=== PATIENT | male | born 1955 ===

== ENCOUNTER 2018-09-16 12:56 | Emergency (ER) | payer OTHER ==
--- NOTE | 2018-09-16 15:01 | C.PDOC ---
History Of Present Illness 63 y/o male,w/PMhx of defibrillator, presents to the ER complaining of dry cough and shortness of breath which has been present for the past 2 weeks. Patient sates that he was recently diagnosed and admitted for "fluid in lungs" at [facility]. Patient was discharged with prescription for Lasix 20 mg and instructed to follow up with PCP. He notes that he has dyspnea at rest,orthopnea, and leg swelling. Denies having fever,chills, CP, syncope, dizziness, and abdominal pain. Time Seen by Provider: 09/16/18 13:44 Chief Complaint (Nursing): Shortness Of Breath History Per: Patient History/Exam Limitations: no limitations Onset/Duration Of Symptoms: Days Current Symptoms Are (Timing): Still Present Severity: Moderate Past Medical History Reviewed: Historical Data, Nursing Documentation, Vital Signs Vital Signs: Last Vital Signs Temp 99 F 09/16/18 13:23 Pulse 112 H 09/16/18 13:23 Resp 20 09/16/18 14:22 BP 139/86 09/16/18 13:23 Pulse Ox 96 09/16/18 14:22 - Medical History PMH: Cardia Arrhythmia, CHF, HTN, Hypercholesterolemia Other Surgeries: Hx of surgeries Family History: States: No Known Family Hx - Social History Hx Alcohol Use: No Hx Substance Use: No - Immunization History Hx Tetanus Toxoid Vaccination: No Hx Influenza Vaccination: Yes Hx Pneumococcal Vaccination: No Review Of Systems Except As Marked, All Systems Reviewed And Found Negative. Constitutional: Negative for: Fever, Chills Cardiovascular: Negative for: Chest Pain Respiratory: Positive for: Cough, Shortness of Breath Gastrointestinal: Negative for: Nausea, Vomiting, Abdominal Pain Physical Exam - Physical Exam Appears: No Acute Distress, Other (speaking in full sentences) Skin: Normal Color, Warm, Dry Head: Atraumatic, Normacephalic Eye(s): bilateral: Normal Inspection Nose: Normal Oral Mucosa: Moist Neck: Supple Chest: Symmetrical Cardiovascular: Rhythm Regular Respiratory: Decreased Breath Sounds, No Rales, No Rhonchi, Wheezing (faint expiratory wheezing) Gastrointestinal/Abdominal: Normal Exam, Soft, No Tenderness, No Guarding, No Rebound Extremity: Normal ROM, Other (mild bilateral pitting edema) Neurological/Psych: Oriented x3, Normal Speech ED Course And Treatment - Laboratory Results Result Diagrams: 09/16/18 14:58 09/16/18 14:58 ECG: Interpreted By Me, Viewed By Me ECG Rhythm: Sinus Tachycardia Interpretation Of ECG: Sinus Tachycardia with occasional PVC's, left axis deviation, RBBB, normal QT, and no ST elevations Rate From EC O2 Sat by Pulse Oximetry: 96 (RA) Pulse Ox Interpretation: Normal Medical Decision Making Medical Decision Making: Plan: --Labs --ECG --CXR Updates: 16:37 Case discussed with and for admission. However, patient wants to sign out AMA. Patient reports that he has appointment with his PMD in 2 days. AMA The patient declines admission, and wishes to leave the Emergency Department. This action is against my medical advice to the patient and the decision was made with informed refusal. The patient was told that admission is necessary and a full explanation of the rationale was given. The risks of leaving were explained to the patient and include, but are not limited to, worsening of known or currently unknown conditions, permanent disability and from undiagnosed or untreated conditions The patient has the capacity to make this informed decision and understands the clinical situation and my explanation of the risks of leaving. The patient voluntarily accepts these risks, and a signed AMA form documenting our conversation was obtained. The patient was given the opportunity to ask questions and reconsider. The patient was encouraged to return to the Emergency Department at any time for further care. Disposition Counseled Patient/Family Regarding: Studies Performed, Diagnosis, Need For Followup - Disposition Referrals: Viry Lynch MD [Medical Doctor] - Disposition: AGAINST MEDICAL ADVICE Disposition Time: 16:47 Condition: STABLE Instructions: Heart Failure, Adult (DC), Leaving Against Medical Advice Forms: [facility] (French), General Discharge Instructions - Clinical Impression Clinical Impression: Acute exacerbation of CHF (congestive heart failure) - Scribe Statement The provider has reviewed the documentation as recorded by the Christopheribe Lizzie Uriarte Provider Attestation: All medical record entries made by the Scribe were at my direction and personally dictated by me. I have reviewed the chart and agree that the record accurately reflects my personal performance of the history, physical exam, medical decision making, and the department course for this patient. I have also personally directed, reviewed, and agree with the discharge instructions and disposition.
[2018-09-16 15:06] LABS: BASO % 0.3 % (0.0-2.0); EOS # 0.2 K/uL (0.0-0.7); EOS % 2.1 % (0.0-4.0); HEMOGLOBIN 13.8 g/dL (12.0-18.0); LYMPH # 2.2 K/uL (1.0-4.3); LYMPH % 22.6 % (20.0-40.0); MEAN CELL VOLUME 90.5 fL (80.0-94.0); MEAN CORPUSCULAR HEMOGLOBIN 29.9 pg (27.0-31.0); MEAN CORPUSCULAR HGB CONC 33.1 g/dL (33.0-37.0); MEAN PLATELET VOLUME 9.4 fL (7.2-11.7); MONO % 10.4 % (0.0-10.0); NEUT # 6.1 K/uL (1.8-7.0); NEUT % 64.6 % (50.0-75.0); RBC 4.62 Mil/uL (4.40-5.90); RED CELL DISTRIBUTION WIDTH 14.4 % (11.5-14.5); WHITE BLOOD COUNT 9.5 K/uL (4.8-10.8)
[2018-09-16 15:13] LABS: INR 1.1; PROTHROMBIN TIME 12.1 SECONDS (9.7-12.2)
[2018-09-16 15:19] LABS: ALB/GLOB RATIO 1.2 (1.0-2.1); ALT/SGPT 22 U/L (21-72); AST/SGOT 29 U/L (17-59); BLOOD UREA NITROGEN 17 mg/dL (9-20); CALCIUM 9.3 mg/dl (8.6-10.4); GFR NON-AFRICAN AMERICAN > 60
[2018-09-16 15:36] LABS: B-TYPE NATRIURETIC PEPTIDE 1340 pg/mL (0-900)
--- NOTE | 2018-09-16 15:42 | RAD ---
HISTORY: SOB COMPARISON: Chest x-ray 06/07/15 TECHNIQUE: Chest, one view. FINDINGS: Examination limited by habitus and hypoinflation. LUNGS: Patchy right hilar infiltrate /central vascular congestion. No focal consolidation. Please note that chest x-ray has limited sensitivity for the detection of pulmonary masses. PLEURA: No significant pleural effusion identified. No definite pneumothorax . CARDIOVASCULAR: Cardiomegaly. Dual lead left-sided AICD. Atherosclerotic calcifications of the aorta. OSSEOUS STRUCTURES: Degenerative changes. VISUALIZED UPPER ABDOMEN: Unremarkable. OTHER FINDINGS: None. IMPRESSION: Patchy right hilar infiltrate /central vascular congestion. Cardiomegaly. Dual lead left-sided AICD. Atherosclerotic calcifications of the aorta.
[2018-09-16 17:21] VITALS: BP 142/89; PULSE 88; RESP 19; TEMP 98.9
[2018-09-16 17:26] VITALS: O2SAT 96
--- NOTE | 2018-09-20 21:33 | CARD ---
APPROVED REPORT Date of service: 09/16/2018 EKG Measurement Heart [id number] <Conclusion> Sinus tachycardia with premature supraventricular complexes Left anterior hemiblock Right bundle branch block Anteroseptal infarct, age undetermined Abnormal ECG
== END 2018-09-16 17:22 | disposition left against medical advice (07) ==
LOC: C.ER 12:56
DX: I50.9 Heart failure, unspecified (principal)
CPT/HCPCS: 71045; 80053; 83735; 83880; 84484; 85025; 85610; 85730; 93005; 96374; 99283; J1940